=== PATIENT | male | born 1950 | race Caucasian/White ===

== ENCOUNTER 2023-02-22 22:35 | Inpatient (IN) | payer MEDICARE, MEDICAID ==
[2023-02-22] MEDS ORDERED: Ondansetron PF 4 MG/2 ML Vial IVP PRN (23:43)
[2023-02-22] MEDS ORDERED: Thiamine HCl 200 MG/2 ML VIAL SLOW IVP SCH (23:45)
[2023-02-22] MEDS ORDERED: Morphine 2 MG/ML VIAL SLOW IVP PRN (23:46)
[2023-02-22] MEDS ORDERED: hydrALAZINE 20 MG/ML VIAL SLOW IVP PRN (23:46)
[2023-02-22] MEDS ORDERED: Lorazepam 2 MG/ML VIAL SLOW IVP PRN (23:47)
[2023-02-23] VITALS: BMI 22.4
[2023-02-23] MEDS ORDERED: Famotidine/PF 20 mg/2ml Vial SLOW IVP SCH (00:15)
[2023-02-23] MEDS: Morphine 4 MG/ML VIAL SLOW IVP PRN ×2 (00:17→06:20)
[2023-02-23] MEDS: Dextrose 5%-Lactated Ringers 1,000 ML IV SCH ×3 (00:24→22:58)
[2023-02-23 04:50] LABS: Lactic Acid 1.2 mmol/L (0.5-2.2)
[2023-02-23 04:54] LABS: Anion Gap 12 mmol/L (10-20); BUN (Urea Nitrogen) 12 mg/dL (8.4-25.7); Calc. Creatinine Clearance 102 mL/min (70-130); Calcium 8.4 mg/dL (7.8-10.44); Carbon Dioxide 26 mmol/L (23-31); Chloride 103 mmol/L (98-107); Estimated GFR 97; Glucose 117 mg/dL (83-110); Magnesium 2.1 mg/dL (1.6-2.6); Potassium 3.9 mmol/L (3.5-5.1); Sodium 137 mmol/L (136-145)
[2023-02-23 04:57] LABS: #Basophils 0.1 10x3/uL (0.0-0.2); #Eosinphils 0.2 10x3/uL (0.0-0.5); #Monocytes 0.9 10x3/uL (0.0-1.1); #Neutrophils 5.3 10x3/uL (1.5-8.4); %Basophils 0.6 % (0.0-2.0); %Eosinophils 2.6 % (0.0-6.0); %Monocytes 11.3 % (0.0-10.0); %Neutrophils 66.4 % (40.0-75.0); Hematocrit 37.3 % (38.8-50.0); Hemoglobin 12.1 g/dL (13.5-17.5); Mean Corpuscular HGB CONC 32.4 g/dL (32.0-36.0); Mean Corpuscular Hemoglobin 28.7 pg (27.0-33.0); Mean Corpuscular Volume 88.6 fl (81.2-95.1); Mean Platelet Volume 8.9 fl (7.4-10.4); Platelet Count 257 10x3/uL (150-450); RBC Distribution Width 13.9 % (11.5-14.5); Red Blood Cell (RBC) Count 4.21 10x6/uL (4.32-5.72)
[2023-02-23] MEDS ORDERED: SODIUM CHLORIDE 0.9% IVPB SCH (09:00)
[2023-02-23] MEDS ORDERED: PHENYTOIN IVPB SCH (09:00)
[2023-02-23] MEDS ORDERED: PROPOFOL 20 ML ONE (10:33)
[2023-02-23] MEDS ORDERED: fentaNYL 50 mcg/mL 1 mL Vial ONE ×3 (10:34→11:30)
[2023-02-23] MEDS ORDERED: Rocuronium Bromide 10 MG/ML (10ML VIAL) ONE (10:36)
[2023-02-23] MEDS ORDERED: Ondansetron PF 4 MG/2 ML Vial ONE (10:36)
[2023-02-23] MEDS ORDERED: EPINEPHrine 1 MG/ML AMP ONE (11:04)
[2023-02-23] MEDS ORDERED: Bupivacaine PF 0.5% 30 ML VIAL ONE (11:04)
[2023-02-23] MEDS ORDERED: Glycopyrrolate 0.2 MG/ML 5 ML SYRINGE ONE (11:56)
[2023-02-23] MEDS: Famotidine/PF 20 mg/2ml Vial SLOW IVP SCH ×2 (13:10→23:00)
[2023-02-23] MEDS: Acetaminophen 325 MG TAB PO SCH ×2 (13:52→20:02)
[2023-02-23] MEDS: Acetaminophen/Codeine 30-300mg Tablet PO PRN ×2 (13:53→20:01)
[2023-02-23] MEDS: Morphine 2 MG/ML VIAL SLOW IVP PRN (17:34)
[2023-02-23] MEDS ORDERED: Thiamine HCl 200 MG/2 ML VIAL SLOW IVP SCH (21:00)
[2023-02-24] MEDS: Acetaminophen/Codeine 30-300mg Tablet PO PRN ×2 (03:20→10:02)
[2023-02-24] MEDS: Acetaminophen 325 MG TAB PO SCH ×4 (03:20→19:00)
[2023-02-24] MEDS: Dextrose 5%-Lactated Ringers 1,000 ML IV SCH (07:01)
[2023-02-24 07:39] LABS: #Eosinphils 0.1 10x3/uL (0.0-0.5); #Monocytes 1.3 10x3/uL (0.0-1.1); %Basophils 0.4 % (0.0-2.0); %Lymphocytes 7.4 % (18.0-47.0); %Monocytes 11.7 % (0.0-10.0); %Neutrophils 79.1 % (40.0-75.0); Hematocrit 40.4 % (38.8-50.0); Mean Corpuscular HGB CONC 32.2 g/dL (32.0-36.0); Mean Corpuscular Hemoglobin 28.5 pg (27.0-33.0); Mean Corpuscular Volume 88.6 fl (81.2-95.1); Mean Platelet Volume 9.4 fl (7.4-10.4); Platelet Count 226 10x3/uL (150-450); RBC Distribution Width 13.8 % (11.5-14.5); Red Blood Cell (RBC) Count 4.56 10x6/uL (4.32-5.72); White Blood Cell (WBC) Count 11.4 10x3/uL (3.5-10.5)
[2023-02-24 07:52] LABS: ALT (SGPT) 16 U/L (8-55); AST (SGOT) 18 U/L (5-34); Albumin 3.6 g/dL (3.4-4.8); Alkaline Phosphatase 93 U/L (40-110); Anion Gap 17 mmol/L (10-20); BUN (Urea Nitrogen) 7 mg/dL (8.4-25.7); Bilirubin, Total 0.7 mg/dL (0.2-1.2); Calc. Creatinine Clearance 100 mL/min (70-130); Calcium 8.9 mg/dL (7.8-10.44); Carbon Dioxide 24 mmol/L (23-31); Chloride 103 mmol/L (98-107); Estimated GFR 97; Globulin 2.9 g/dL (2.4-3.5); Glucose 110 mg/dL (83-110); Potassium 3.8 mmol/L (3.5-5.1); Protein, Total 6.5 g/dL (5.8-8.1); Sodium 140 mmol/L (136-145)
[2023-02-24] MEDS: busPIRone HCl 15 MG TAB PO SCH ×3 (09:39→20:22)
[2023-02-24] MEDS: Atorvastatin Calcium 10 MG TAB PO SCH (09:39)
[2023-02-24] MEDS: OLANZapine 5 MG TAB PO SCH (09:39)
[2023-02-24] MEDS: Phenytoin Extended Release 100 MG CAP PO SCH (09:39)
[2023-02-24] MEDS: Divalproex Sodium 250 MG (DR) TAB PO SCH ×2 (09:40→20:22)
[2023-02-24] MEDS: Acetaminophen/Codeine 30-300mg Tablet PO SCH ×2 (16:53→22:00)
[2023-02-24] MEDS: Morphine 2 MG/ML VIAL SLOW IVP PRN (20:23)
[2023-02-25] MEDS: Acetaminophen 325 MG TAB PO SCH ×4 (01:00→21:51)
[2023-02-25] MEDS: Acetaminophen/Codeine 30-300mg Tablet PO SCH ×4 (04:07→21:12)
[2023-02-25] MEDS: Levothyroxine Sodium 50 MCG TAB PO SCH (06:48)
[2023-02-25 08:09] LABS: #Eosinphils 0.3 10x3/uL (0.0-0.5); #Monocytes 1.3 10x3/uL (0.0-1.1); %Basophils 0.3 % (0.0-2.0); %Eosinophils 2.6 % (0.0-6.0); %Lymphocytes 11.4 % (18.0-47.0); %Neutrophils 74.3 % (40.0-75.0); Hematocrit 35.5 % (38.8-50.0); Hemoglobin 11.7 g/dL (13.5-17.5); Mean Corpuscular Hemoglobin 28.9 pg (27.0-33.0); Mean Corpuscular Volume 87.7 fl (81.2-95.1); Platelet Count 217 10x3/uL (150-450); RBC Distribution Width 13.9 % (11.5-14.5); Red Blood Cell (RBC) Count 4.05 10x6/uL (4.32-5.72); White Blood Cell (WBC) Count 12.1 10x3/uL (3.5-10.5)
[2023-02-25 08:27] LABS: ALT (SGPT) 14 U/L (8-55); AST (SGOT) 16 U/L (5-34); Albumin 3.4 g/dL (3.4-4.8); Alkaline Phosphatase 73 U/L (40-110); Anion Gap 13 mmol/L (10-20); BUN (Urea Nitrogen) 15 mg/dL (8.4-25.7); Bilirubin, Total 0.4 mg/dL (0.2-1.2); Calc. Creatinine Clearance 93 mL/min (70-130); Calcium 8.7 mg/dL (7.8-10.44); Carbon Dioxide 28 mmol/L (23-31); Chloride 101 mmol/L (98-107); Estimated GFR 95; Glucose 90 mg/dL (83-110); Potassium 3.5 mmol/L (3.5-5.1); Protein, Total 6.4 g/dL (5.8-8.1); Sodium 138 mmol/L (136-145)
[2023-02-25] MEDS: Lisinopril 5 MG TAB PO SCH (09:27)
[2023-02-25] MEDS: Atorvastatin Calcium 10 MG TAB PO SCH (09:27)
[2023-02-25] MEDS: Divalproex Sodium 250 MG (DR) TAB PO SCH ×2 (09:28→21:13)
[2023-02-25] MEDS: Phenytoin Extended Release 100 MG CAP PO SCH (09:28)
[2023-02-25] MEDS: OLANZapine 5 MG TAB PO SCH (09:28)
[2023-02-25] MEDS: busPIRone HCl 15 MG TAB PO SCH ×3 (09:29→21:13)
[2023-02-25] MEDS ORDERED: Polyethylene Glycol 3350 17 GM Packet PO SCH (12:00)
[2023-02-25] MEDS: Bisacodyl 10 MG SUPP PR SCH ×2 (12:01→21:17)
[2023-02-25] MEDS ORDERED: Benzocaine/Menthol 1 LOZ LOZ PO PRN (16:59)
[2023-02-25] MEDS: Nystatin 500,000 UNITS/5 ML UDCUP SSW SCH ×2 (17:57→21:12)
[2023-02-26] MEDS: Acetaminophen/Codeine 30-300mg Tablet PO SCH ×2 (04:29→10:13)
[2023-02-26] MEDS: Bisacodyl 10 MG SUPP PR SCH ×2 (04:39→13:02)
[2023-02-26] MEDS: Levothyroxine Sodium 50 MCG TAB PO SCH (06:01)
[2023-02-26] MEDS ORDERED: Multivitamin W/ Minerals 1 TAB PO SCH (09:00)
[2023-02-26] MEDS ORDERED: Polyethylene Glycol 3350 17 GM Packet PO SCH (09:00)
[2023-02-26] MEDS: busPIRone HCl 15 MG TAB PO SCH (09:08)
[2023-02-26] MEDS: Atorvastatin Calcium 10 MG TAB PO SCH (09:08)
[2023-02-26] MEDS: Phenytoin Extended Release 100 MG CAP PO SCH (09:08)
[2023-02-26] MEDS: Lisinopril 5 MG TAB PO SCH (09:09)
[2023-02-26] MEDS: Divalproex Sodium 250 MG (DR) TAB PO SCH (09:09)
[2023-02-26] MEDS: OLANZapine 5 MG TAB PO SCH (09:10)
[2023-02-26] MEDS: Nystatin 500,000 UNITS/5 ML UDCUP SSW SCH ×2 (09:10→13:02)
[2023-02-26 12:51] VITALS: BP 121/69; TEMP 98.7
== END 2023-02-26 13:48 | DRG 351 ==
LOC: CSHTELE 23:18
PROVIDERS: ADMIT Student in an Organized Health Care Education/Training Program; ATTEND Internal Medicine
PROC: 0YU50JZ Supplement Right Inguinal Region with Synthetic Substitute, Open Approach (ICD-10-PCS; principal; 2023-02-23)
DX: K40.30 Unilateral inguinal hernia, with obstruction, without gangrene, not specified as recurrent (principal); E44.0 Moderate protein-calorie malnutrition; E86.0 Dehydration; I10 Essential (primary) hypertension; E78.5 Hyperlipidemia, unspecified; K21.9 Gastro-esophageal reflux disease without esophagitis; F43.10 Post-traumatic stress disorder, unspecified; E03.9 Hypothyroidism, unspecified; I71.43 Infrarenal abdominal aortic aneurysm, without rupture; G40.909 Epilepsy, unspecified, not intractable, without status epilepticus; F39 Unspecified mood [affective] disorder; Z68.22 Body mass index [BMI] 22.0-22.9, adult; N32.89 Other specified disorders of bladder
CPT/HCPCS: 36415; 80048; 80053; 83605; 83735; 84443; 85025; J0171; J0360; J1650; J2270; J2272; J2405; J2704; J3010; J3411; S0020; S0028

== ENCOUNTER 2023-08-04 12:10 | Emergency (ER) | payer MEDICARE, OTHER | END 2023-08-04 15:07 | disposition home or self-care (01) | LOC: CSHERS 12:10 | DX: S00.03XA Contusion of scalp, initial encounter (principal); I10 Essential (primary) hypertension; W05.0XXA Fall from non-moving wheelchair, initial encounter; W51.XXXA Accidental striking against or bumped into by another person, initial encounter | CPT/HCPCS: 70450; 72125 ==